=== PATIENT | male | born 2005 | race Caucasian/White ===

== ENCOUNTER 2024-04-23 23:19 | Emergency (ER) | payer BC, SELFPAY ==
[2024-04-23 23:23] VITALS: BP 140/86
[2024-04-24 01:42] LABS: % Basophils 0.4 % (0-2); % Eosinophils 0.2 % (0-6); % Immature Granulocytes 0.3 % (0-0.5); % Lymphocytes 13.4 % (20.5-51.1); % Monocytes 8.5 % (1.7-9.3); % Neutrophils 77.2 % (42.2-75.2); Absolute Lymphocytes 1.3 10^3/uL (1.2-3.4); Absolute Monocytes 0.8 10^3/uL (0.1-0.6); Absolute Neutrophils 7.2 10^3/uL (1.4-6.5); Hematocrit 40.3 % (39.0-52.0); Hemoglobin 14.2 g/dL (13.0-18.0); Mean Corp Hgb Conc. 35.2 g/dL (33.0-37.0); Mean Corpuscular Hgb 27.3 pg (27.0-31.0); Mean Corpuscular Volume 77.5 fL (80.0-94.0); Mean Platelet Volume 9.7 fL (7.4-10.4); Nucleated Red Blood Cells % 0 % (-); Platelet Count 237 10^3/uL (130-400); Red Cell Dist. Width 11.8 % (11.5-14.5); White Blood Cell Count 9.3 10^3/uL (4.8-10.8)
[2024-04-24 01:54] LABS: Lactic Acid 1.5 mmol/L (0.7-2.0)
[2024-04-24 01:55] LABS: Blood Urea Nitrogen 11 mg/dl (9-20); Calcium 9.9 mg/dl (8.4-10.2); Carbon Dioxide 26 mmol/L (22-30); Chloride 101 mmol/L (98-107); Glucose 118 mg/dl (70-99); Sodium 142 mmol/L (135-145); eGFR > 60.00
[2024-04-24 02:00] LABS: Potassium 4.3 mmol/L (3.5-5.1)
--- NOTE | 2024-04-24 02:27 | ED.GENMED ---
History of Present Illness
General
Chief Complaint: Skin Problem
Source: patient
Exam Limitations: none
Time Seen by Provider: 04/24/24 02:27
Nursing documentation reviewed up to this point in time: agreed with
History of Present Illness
History of Present Illness:
Patient is a 18-year-old male presents to the ER for evaluation. Patient has had infection around the nail of right middle finger for the past several days. He reports he has a history of biting his nails and has had nail infections in the past.
Today he went to urgent care and they did drain the infection and put him on Bactrim. He took 1 dose. When he got home however he noticed that his arm was hurting him and mom noticed red streaking. He denies any fever chills he does not feel ill.
Review of Systems
Review of Systems
Allergies reviewed?: Yes
All Other Systems: ROS reviewed and negative except as documented in HPI and ROS
Constitutional: Reports no symptoms; Denies fever, fatigue or chills
Musculoskeletal: Reports other (right middle finger infection w/ red streaking up arm )
Skin: Reports no symptoms
Neurological: Reports no symptoms
Psychiatric: Reports no symptoms
Phy Exam
General Physical Exam
General Presentation: no apparent distress
General age: appears stated age
General Skin: warm and dry
General Habitus: normal
General Mental: alert
General Hydration: appears well hydrated
Neurological Exam
Neurological Exam: alert and oriented x3
Musculoskeletal Exam
Musculoskeletal Exam: full ROM and other (rue with strong pulses + mild erythema to right middle finger no swelling able to flex/extend + lymphangitis to forearm and upper arm good range of motion to arm no right axilla lymphadenopathy)
Skin Exam
Skin Exam: normal color and warm/dry
Psychiatric Exam
Psychiatric Exam: normal mood/affect
Course
Orders/Labs/Results
Orders:
Orders
04/24/24 01:33
Basic Metabolic Panel Urgent
Complete Blood Count/With Diff Urgent
Lactate Level [Lactic Acid] Urgent
Blood Culture Urgent
MARLENE Source: Blood/Venous
Specimen Description:
04/24/24 02:49
Amoxicillin 875 mg/Clav 125 mg [Augmentin 875 mg/125 mg] 1 tablet PO NOW STA
Abnormal Lab Results
04/24/24
01:33
MCV 77.5 L fL
(80.0-94.0)
Absolute Neuts (auto) 7.2 H 10^3/uL
(1.4-6.5)
Absolute Monos (auto) 0.8 H 10^3/uL
(0.1-0.6)
Neutrophils % 77.2 H %
(42.2-75.2)
Lymphocytes % 13.4 L %
(20.5-51.1)
Glucose 118 H mg/dl
(70-99)
04/24/24 01:33
04/24/24 01:33
Vital Signs
Initial and Last Documented VS:
Initial Vital Signs
Temp Pulse Resp BP Pulse Ox
98.2 F 78 20 140/86 98
04/23/24 23:23 04/23/24 23:23 04/23/24 23:23 04/23/24 23:23 04/23/24 23:23
Last Documented Vital Signs
Temp Pulse Resp BP Pulse Ox
98.2 F 78 20 140/86 98
04/23/24 23:23 04/23/24 23:23 04/23/24 23:23 04/23/24 23:23 04/23/24 23:23
Hatchery Helper consulted with Physician
Hatchery Helper consulted with physician?: Yes
Name of Physician Consulted: Dr Edwards
MDM/Problems Addressed
MDM/Problems Addressed:
Patient is a 18-year-old male who has frequent history of paronychia from nail biting. He has had swelling to the right middle finger around the nail cuticle area for the past several days went to urgent care had it drained today started on Bactrim
first dose taken however then this afternoon noticed some discomfort in right arm with red streaking. He denies any fever chills he is nontoxic on exam he does not feel ill he is very well-appearing. White count is normal. Case reviewed with ED
physician. stable for d/c home. 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 Patient is to see his PCP
in the next 1 to 2 days and to return if any worsening of symptoms including worsening of the lymphangitis fever chills feeling ill or any further concerns.
*Pulse Oximetry
Patient hypoxic: no
*Critical Care Note
Total Time (30-74mins, 75-104mins- exclusive of procedures): Not Applicable
ED Attending Note
-
Portions of this chart may have been created with voice recognition software.� Occasional wrong word or��sound alike� substitutions may have occurred due to the inherent limitations of voice recognition software.
Discharge Plan
Departure
Patient Disposition: Home (Routine Discharge)
Date of Disposition: 04/24/24
Time of Disposition: 02:50
Patient with high blood pressure during this ER visit?: Yes
Condition: Fair
Covid-19: Not Applicable
Discharge Problem:
Paronychia
Instructions: Paronychia ED
Prescriptions:
New
amoxicillin-pot clavulanate 875-125 mg tablet
1 tab PO BID Qty: 20 0RF
No Action
cetirizine 10 MG tablet
5 mg PO DAILY
sertraline 100 MG tablet
100 mg PO DAILY
Activity Restrictions/Additional Instructions:
As discussed stop Bactrim and start Augmentin. This medication was sent to your pharmacy.
You were given the first dose here in the ER. Start twice a day for the next 10 days. Closely follow-up with family doctor in the next 1 to 2 days. Return however to the ER for any worsening symptoms if you feel ill, fever chills increasing
pain swelling increased red streaking or any further concerns.
Interventions
Interventions:
*Risk Screen - Suicide Last Done: 04/23/24 23:23
*Neglect/Abuse Screening Last Done: 04/23/24 23:23
Discharge Date and Time
Print Language: CZECH
[2024-04-24] MEDS: AUGMENTIN 875 MG/125 MG 1 TABLET PO (03:00)
== END 2024-04-24 03:06 | disposition home or self-care (01) ==
LOC: EMR 23:19
PROVIDERS: Emergency Medicine; EMERGENCY PHYSICIAN Student in an Organized Health Care Education/Training Program; FAMILY PHYSICIAN Pediatrics
DX: L03.011 Cellulitis of right finger (principal)
CPT/HCPCS: 99283; 80048; 83605; 85025; 87040

== ENCOUNTER → 2025-05-30 14:46 | Outpatient (REF) | payer BC, SELFPAY | LOC: HWRAD 14:46 | PROVIDERS: ATTENDING PHYSICIAN Physician Assistant; FAMILY PHYSICIAN Pediatrics | DX: R10.11 Right upper quadrant pain (principal) | CPT/HCPCS: 76700 ==